=== PATIENT | female | born 1965 | race Caucasian/White ===

== ENCOUNTER 2023-07-25 13:18 | Observation (INO) | payer OTHER ==
[2023-07-25 14:21] VITALS: TEMP 98.4; BMI 23.8
[2023-07-25 14:41] LABS: BASO % 0.8 % (0-2.0); EOS % 2.8 % (0-4.5); HEMATOCRIT 38.3 % (32.4-45.2); HEMOGLOBIN 11.6 GM/dL (10.7-15.3); LYMPH % 40.4 % (8-40); MCH 21.5 pg (25.7-33.7); MCHC 30.4 g/dl (32.0-36.0); MEAN CELL VOLUME 70.7 fl (80-96); MEAN PLT VOLUME 8.8 fl (7.5-11.1); MONO % 14.2 % (3.8-10.2); NEUT % 41.8 % (42.8-82.8); PLATELET COUNT 256 10^3/uL (134-434); RBC 5.41 M/mm3 (3.60-5.2); RDW 13.9 % (11.6-15.6); WHITE BLOOD COUNT 4.6 K/mm3 (4.0-10.0)
[2023-07-25 14:47] LABS: INR 1.09 (0.83-1.09); PROTHROMBIN TIME (PATIENT) 12.3 SEC (9.7-13.0)
[2023-07-25 14:49] LABS: ACTIVATED PTT 34.4 SECONDS (25.2-36.5)
[2023-07-25 15:00] LABS: POTASSIUM 4.3 mmol/L (3.5-5.1)
[2023-07-25 15:02] LABS: ALBUMIN 3.6 g/dl (3.4-5.0); CALCIUM 9.6 mg/dL (8.5-10.1)
[2023-07-25 15:03] LABS: ANISOCYTOSIS 1+; BLOOD UREA NITROGEN 14.3 mg/dL (7-18); MACROCYTOSIS 0; MAGNESIUM 2.3 mg/dL (1.8-2.4)
[2023-07-25 15:06] LABS: CREATININE 0.9 mg/dL (0.55-1.3)
[2023-07-25 15:07] LABS: BILIRUBIN,TOTAL 0.3 mg/dL (0.2-1); TOT PROT 7.8 g/dl (6.4-8.2)
[2023-07-25] MEDS: SODIUM CHLORIDE 2,000 ML IV STA ×2 (21:18→21:47)
[2023-07-25] MEDS: SODIUM CHLORIDE 1,000 ML IV STA (22:20)
[2023-07-26 00:08] VITALS: BP 119/71; PULSE 53; RESP 12
== END 2023-07-26 00:11 | disposition home or self-care (01) ==
LOC: JER 13:18 → JERBED 20:13
PROVIDERS: ADMIT Internal Medicine; ATTEND Internal Medicine
PROC: 3E0337Z Introduction of Electrolytic and Water Balance Substance into Peripheral Vein, Percutaneous Approach (ICD-10-PCS; principal; 2023-07-25)
DX: E86.1 Hypovolemia (principal); I95.1 Orthostatic hypotension; K21.9 Gastro-esophageal reflux disease without esophagitis; I51.9 Heart disease, unspecified; E78.5 Hyperlipidemia, unspecified; R00.1 Bradycardia, unspecified
CPT/HCPCS: 0241U-QW; 36415; 71046-TC-FY; 80053; 83735; 84484; 85025; 85610; 85730; 93005; 93010; 96360; 99285-25; G0378